=== PATIENT | female | born 1990 | race Caucasian/White ===

== ENCOUNTER → 2017-01-25 | Outpatient (CLI) | payer BC | END | disposition home or self-care (01) | LOC: LABWHC1 16:29 | PROVIDERS: ATTEND Family Medicine | DX: R07.89 Other chest pain (principal) | CPT/HCPCS: 36415; 93005 ==

== ENCOUNTER 2019-01-06 19:24 | Emergency (ER) | payer BC, OTHER ==
--- NOTE | 2019-01-06 19:54 | ED ---
General Adult HPI - General Chief complaint: [place]/Exposure Stated complaint: [facility] blood draw Time Seen by Provider: 01/06/19 19:34 Source: patient, RN notes reviewed, old records reviewed Mode of arrival: ambulatory Limitations: no limitations - History of Present Illness Initial comments: 28 year old female patient reasons to ED with occupational exposure of blood splash to eye. 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 Patient denies any other complaints at this time. Patient reports that she irrigated eye after exposure. Systemic: Pt denies fatigue, fever/chills, rash. Pt denies weakness, night sweats, weight loss. Neuro: Pt denies headache, visual disturbances, syncope or pre-syncope. HEENT: Pt denies ocular discharge or irritation, otalgia, rhinorrhea, pharyngitis or notable lymphadenopathy. Cardiopulmonary: Pt denies chest pain, SOB, heart palpitations, dyspnea on exertion. Abdominal/GI: Pt denies abdominal pain, n/v/d. : Pt denies dysuria, burning w/ urination, frequency/urgency. Denies new onset urinary or bowel incontinence. MSK: Pt denies myalgia, loss of strength or function in extremities. Neuro: Pt denies new onset weakness, paresthesias. Review of Systems ROS Statement: Those systems with pertinent positive or pertinent negative responses have been documented in the HPI. ROS Other: All systems not noted in ROS Statement are negative. Past Medical History Past Medical History: No Reported History History of Any Multi-Drug Resistant Organisms: None Reported Past Surgical History: No Surgical Hx Reported Past Psychological History: No Psychological Hx Reported Smoking Status: Current every day smoker Past Alcohol Use History: None Reported Past Drug Use History: None Reported General Exam - General Exam Comments Initial Comments: Constitutional: NAD, AOX3, Pt has pleasant affect. HEENT: NC/AT, trachea midline, neck supple, no lymphadenopathy. Posterior pharynx non erythematous, without exudates. External ears appear normal, without discharge. Mucous membranes moist. Eyes PERRLA, EOM intact. There is no scleral icterus. No pallor noted. Cardiopulmonary: RRR, no murmurs, rubs or gallops, no JVD noted. Lungs CTAB in anterior and posterior lee. No peripheral edema. Abdominal exam: Abdomen soft and non-distended. Abdomen non-tender to palpation in all 4 quadrants. Bowel sounds active in LLQ. No hepatosplenomegaly. No ecchymosis Neuro: CN II-XII grossly intact. No nuchal rigidity. No raccon eyes, no yañez sign, no hemotympanum. No cervical spinal tenderness. MSK: No posterior calf tenderness bilaterally, homans sign negative bilaterally. Posterior tibialis and radial pulse +2 bilaterally. Sensation intact in upper and lower extremities. Full active ROM in upper and lower extremities, 5/5 stregnth. Limitations: no limitations Course Vital Signs 01/06/19 19:48 Pulse Rate 82 Respiratory 17 Rate Blood Pressure 144/90 O2 Sat by Pulse 99 Oximetry Medical Decision Making - Medical Decision Making 28 year old female patient reasons to ED with occupational exposure of blood to eye. 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 Patient denies any other complaints at this time. Pt irrigated eye after exposure. Pt VSS, afebrile. Pt declined hiv prophylaxis. Pt contacted with rapid HIV results which were negative. Case discussed with Dr. Carrizales. Disposition Clinical Impression: Exposure to blood Disposition: HOME SELF-CARE Condition: Stable Additional Instructions: Patient to adhere to previously discussed treatment plan and will take medication(s) as directed. Patient to follow up with PCP in 1-2 days. Patient to return to ED if symptoms do not improve. Is patient prescribed a controlled substance at d/c from ED?: No Referrals: Francis Stapleton DO [Primary Care Provider] - 1-2 days
[2019-01-06 20:00] VITALS: BP 144/90; PULSE 82; RESP 17
[2019-01-08 09:09] LABS: HIV 1 AB Non-Reactive; HIV AB P24 Non-Reactive; HIV P24 AG Non-Reactive
[2019-01-08 09:11] LABS: Hepatitis C IgG Antibody Non-Reactive
== END 2019-01-06 19:48 | disposition home or self-care (01) ==
LOC: EC 19:24
DX: Z77.21 Contact with and (suspected) exposure to potentially hazardous body fluids (principal); F17.200 Nicotine dependence, unspecified, uncomplicated
CPT/HCPCS: 99283

== ENCOUNTER → 2022-09-13 | Outpatient (CLI) | payer BC ==
--- NOTE | 2022-09-13 07:26 | MM ---
Reason for Exam: Clinical finding. Baseline mammogram. Indicated Problems: Lump or thickening of both sides for 1 Week(s). Patient History: Menarche at age 15. Patient has no children. Currently using Hormonal Contraceptives, starting at age 25. Last menstrual period: 08/28/2022 Prior Study Comparison: Patient's first Mammogram. Tissue Density: The breast tissue is extremely dense which could obscure a lesion on mammography. Findings: Analyzed By CAD. No obvious distortion or suspicious group of microcalcifications bilaterally. Overall Assessment: Incomplete: need additional imaging evaluation, BI-RAD 0 Management: Diagnostic Breast Ultrasound of both breasts. Targeted ultrasound bilateral breasts palpable lumps. Results were given to the patient verbally at the time of exam. Patient should continue monthly self-breast exams. A clinical breast exam by your physician is recommended on an annual basis. This exam should not preclude additional follow-up of suspicious palpable abnormalities. Note on Sammie scores and lifetime risk: 1. A Sammie score greater than 3% is considered moderate risk. If this is the case, consider specialist referral to assess eligibility for a risk reducing agent. 2. If overall lifetime risk for the development of breast cancer is 20% or higher, the patient may qualify for future screening with alternating mammogram and breast MRI. Electronically signed and approved by: Arnaud Lopes M.D.
--- NOTE | 2022-09-13 08:54 | USB ---
Reason for Exam: Clinical finding. Patient History: Menarche at age 15. Patient has no children. Currently using Hormonal Contraceptives, starting at age 25. Findings: The upper section of the breast of the right breast, the upper inner quadrant of the left breast, the area of palpable concern of both breasts, the axilla of both breasts and the retroareolar of both breasts were scanned. Targeted ultrasound at area of concern bilaterally. No solid or cystic masses are identified. Scanning of the bilateral axilla and subareolar region shows no suspicious mass or adenopathy. Overall Assessment: Negative, BI-RAD 1 Management: Screening Mammogram of both breasts at age 42. Managed clinically patient's symptoms of bilateral palpable abnormalities. Results were given to the patient verbally at the time of exam. Electronically signed and approved by: Arnaud Lopes M.D.
== END | disposition home or self-care (01) ==
LOC: RADMAMWWP 06:53
PROVIDERS: ATTEND Obstetrics & Gynecology
DX: R92.8 Other abnormal and inconclusive findings on diagnostic imaging of breast (principal)
CPT/HCPCS: 77062; 77066